=== PATIENT | female | born 1960 | race Caucasian/White ===

== ENCOUNTER 2017-03-30 12:06 | Emergency (ER) | payer BC | END 2017-03-30 12:32 | disposition home or self-care (01) | LOC: E/R 12:06 | DX: R50.9 Fever, unspecified (principal); R05 Cough; R51 Headache; R09.81 Nasal congestion | CPT/HCPCS: 99283 ==

== ENCOUNTER 2018-07-20 11:36 | Emergency (ER) | payer SELFPAY, BC | END 2018-07-20 16:34 | disposition left against medical advice (07) | LOC: E/R 11:36 | DX: Z53.21 Procedure and treatment not carried out due to patient leaving prior to being seen by health care provider (principal) ==